=== PATIENT | female | born 2000 | race Caucasian/White ===

== ENCOUNTER 2020-12-28 13:53 | Inpatient (IN) | payer BC ==
[~2020-12-28] VITALS: Ht 157.5 cm; Wt 81.6 kg
[2020-12-28 14:31] LABS: *BILIRUBIN,URIN NEGATIVE (NEGATIVE); *BLOOD, URINE NEGATIVE (NEGATIVE); *CLARITY,URINE CLEAR (CLEAR); *COLOR,URINE YELLOW (YELLOW); *KETONES,URINE NEGATIVE (NEGATIVE); *UROBILINOGEN,URINE 0.2 E.U./dl (NORMAL); LEUKOCYTE ESTERASE ,URINE TRACE (NEGATIVE); NITRITE, URINE NEGATIVE (NEGATIVE); UGLUCOSE NEGATIVE (NEGATIVE)
[2020-12-28 14:32] LABS: *URINE HCG, QUAL NEG (NEGATIVE)
[2020-12-28 14:55] LABS: MEAN CORPUSCULAR HEMOGLOBIN 15.2 uug (24.7-32.8); MEAN CORPUSCULAR VOLUME 55.4 fL (75.5-95.3); PLATELET COUNT (AUTO) 474 K/uL (179-408)
[2020-12-28 14:58] LABS: CREATININE 0.9 mg/dL (0.6-1.3); POTASSIUM 3.8 mmol/L (3.5-5.1)
[2020-12-28 15:00] LABS: BACTERIA,URINE NONE SEEN /HPF (NONE SEEN); RBC,URINE 0-3 /HPF (0-3); WBC,URINE 0-3 /HPF (0-3)
[2020-12-28 15:03] LABS: BILIRUBIN,TOTAL 0.5 mg/dL (0.2-1.0); TOTAL PROTEIN, SERUM 7.8 g/dL (6.4-8.2)
--- NOTE | 2020-12-28 16:02 | NUR ---
PT IS IN ROOM #1B. DR ZAVALA EVALUATED THE PT.
[2020-12-28] MEDS: MULTIVIT, IRON, MIN NO. 8, FA TABLET PO SCH (16:27)
[2020-12-28] MEDS ORDERED: MORPHINE SULFATE 2 MG/1 ML DISP.SYRIN IV PRN (18:15)
[2020-12-28] MEDS ORDERED: ONDANSETRON 4 MG/2 ML VIAL IV PRN (18:15)
[2020-12-28] MEDS ORDERED: ACETAMINOPHEN 325 MG TABLET PO PRN (18:15)
[2020-12-28 18:16] LABS: IRON, SERUM 11 ug/dL (50-175)
[2020-12-28 20:45] VITALS: BP 137/57
--- NOTE | 2020-12-28 21:00 | NUR ---
Admitted patient to med-surg unit from ER Dx of severe anemia with syncope.Patient alert x4.Awake.Denies pain or SOB at this time.On RA.No s/s of distress noted. Iv on the left hand patent and intact.Patient H/H was 5.2 and 19.0.Patient received 1 unit of PRBC from Er. Admitting Md.Dr dodge notified with new order to infused another 1 unit of PRBC.Order placed and Bld bank made aware.Patient's mom at bedside and made aware.Will continue to monitor.
--- NOTE | 2020-12-28 23:05 | NUR ---
Patient awake in no apparent distress noted. Blood transfusion started no a/r noted. VSS. afebrile.Call light with in reach.
[2020-12-28 23:12] LABS: BAND % (MANUAL) 1 % (0-10); LYMPHOCYTES % (MANUAL) 18 % (20-40); MONOCYTES % (MANUAL) 4 % (2-10); NEUTROPHILS % (MANUAL) 77 % (42-75)
[2020-12-28 23:20] VITALS: BP 106/56
[2020-12-28 23:40] VITALS: BP 118/61
[2020-12-29 00:15] VITALS: BP 118/63
[2020-12-29 01:15] VITALS: BP 119/68
[2020-12-29 02:19] VITALS: BP 120/68
--- NOTE | 2020-12-29 02:19 | NUR ---
Blood transfusion completed .Patient denies SOB or any unusual changes throughout the infusion.Patient was seen by last night .Patient ambulates to bathroom.Voided well. Will continue to monitor.
[2020-12-29 04:35] VITALS: BP 117/58
[2020-12-29 06:44] LABS: MEAN CORPUSCULAR HEMOGLOBIN 18.5 uug (24.7-32.8); MEAN CORPUSCULAR VOLUME 62.1 fL (75.5-95.3); PLATELET COUNT (AUTO) 409 K/uL (179-408)
--- NOTE | 2020-12-29 07:30 | NUR ---
AWAKE ALERT AND ORIENTED X3 DENIES PAIN OR SOB, NO SIGNS OF BLEEDING. HGB 7.5. WILL CONTINUE TO OBSERVE
[2020-12-29 07:50] LABS: CREATININE 0.9 mg/dL (0.6-1.3); MAGNESIUM 2.4 mg/dL (1.8-2.4); PHOSPHOROUS 4.6 mg/dL (2.5-4.9); POTASSIUM 4.2 mmol/L (3.5-5.1)
[2020-12-29] MEDS: MULTIVIT, IRON, MIN NO. 8, FA TABLET PO SCH (08:27)
[2020-12-29] MEDS ORDERED: FAMOTIDINE 20 MG TABLET PO SCH (09:00)
--- NOTE | 2020-12-29 10:41 | NUR ---
SEEN BY DR WEBER PLAN DC TODAY IF STABLE TOWARDS THE DAY
--- NOTE | 2020-12-29 10:45 | NUR ---
AMBULATED AROUND THE HALLWAY PATIENT TOLERATED WELL
[2020-12-29 11:00] VITALS: BP 140/76
[2020-12-29] MEDS ORDERED: FERR325T28 PO (11:13)
--- NOTE | 2020-12-29 12:36 | NUR ---
DISCHARGED HOME STABLE WITH PRESCRIPTION AND FOLLOW-UP INSTRUCTION TO SEE PRIMARY DOCTOR 1-2 WEEKS
== END 2020-12-29 12:45 | disposition home or self-care (01) | DRG 761 ==
LOC: ER 13:53 → MEDSURG3 20:38
PROVIDERS: ADMIT Internal Medicine; ATTEND Internal Medicine
PROC: 30233N1 Transfusion of Nonautologous Red Blood Cells into Peripheral Vein, Percutaneous Approach (ICD-10-PCS; principal; 2020-12-28)
DX: N92.0 Excessive and frequent menstruation with regular cycle (principal); D50.0 Iron deficiency anemia secondary to blood loss (chronic); E66.9 Obesity, unspecified; Z68.32 Body mass index [BMI] 32.0-32.9, adult; Z20.822 Contact with and (suspected) exposure to COVID-19
CPT/HCPCS: 36415; 70030-TC; 71045; 83550; 83735; 84100; 84703; 85025; 86850; 86900; 86901; 86920; 93005; 93307; A4663; G0378; J7030; J7040; P9016

== ENCOUNTER 2021-01-18 13:23 | Outpatient (CLI) | payer BC, OTHER ==
[~2021-01-18 13:23] MED LIST: FERR325T28 PO
[2021-01-18 14:17] LABS: *BILIRUBIN,URIN NEGATIVE (NEGATIVE); *BLOOD, URINE NEGATIVE (NEGATIVE); *CLARITY,URINE CLEAR (CLEAR); *COLOR,URINE YELLOW (YELLOW); *KETONES,URINE NEGATIVE (NEGATIVE); *UROBILINOGEN,URINE 0.2 E.U./dl (NORMAL); LEUKOCYTE ESTERASE ,URINE NEGATIVE (NEGATIVE); NITRITE, URINE NEGATIVE (NEGATIVE); PH,URINE 6.5 (5.0-8.0); UGLUCOSE NEGATIVE (NEGATIVE)
[2021-01-18 14:19] LABS: HEMATOCRIT 37.2 % (31.2-41.9); MEAN CORPUSCULAR HEMOGLOBIN 24.1 uug (24.7-32.8); PLATELET COUNT (AUTO) 432 K/uL (179-408)
[2021-01-18 14:21] LABS: BILIRUBIN,TOTAL 0.2 mg/dL (0.2-1.0); CREATININE 0.8 mg/dL (0.6-1.3); POTASSIUM 3.9 mmol/L (3.5-5.1); TOTAL PROTEIN, SERUM 8.5 g/dL (6.4-8.2)
[2021-01-18 15:41] LABS: THYROID STIMULATING HORMONE 3.669 mIU/mL (0.358-3.740)
== END 2021-01-18 23:59 | disposition home or self-care (01) ==
LOC: LAB 13:23
PROVIDERS: ATTEND Family Medicine
DX: D64.9 Anemia, unspecified (principal); Z00.00 Encounter for general adult medical examination without abnormal findings
CPT/HCPCS: 36415; 83550; 84443; 85025